=== PATIENT | female | born 1980 | race Caucasian/White ===

== ENCOUNTER 2017-11-25 07:25 | Inpatient (IN) | payer BC ==
[2017-11-25] MEDS ORDERED: morphine 2 MG INJ IV (09:00)
[2017-11-25] MEDS ORDERED: NACL 0.9% 3 ML SYG IV (09:00)
[2017-11-25] MEDS: morphine 2 MG INJ IV (09:00)
[2017-11-25] MEDS: SOD CHLORIDE 0.9% 1,000 ML IV ×3 (09:44→23:46)
[2017-11-25 09:52] LABS: ADD MAN DIFF? NO
[2017-11-25 09:56] LABS: WHITE BLOOD COUNT 7.1 10^3/ul (4.8-10.8)
[2017-11-25 09:56] LABS: BASOPHILS % 0.3 % (0.0-2.0); EOSINOPHILS % 0.4 % (0.0-7.0); HEMATOCRIT 36.6 % (37.0-47.0); HEMOGLOBIN 13.4 g/dl (12.0-16.0); LYMPHOCYTES # 1.2 10^3/ul (0.8-2.9); LYMPHOCYTES % 16.8 % (15.0-51.0); MEAN CORPUSCULAR HEMOGLOBIN 30.2 pg (29.0-33.0); MEAN CORPUSCULAR HGB CONC 36.6 g/dl (32.0-37.0); MEAN CORPUSCULAR VOLUME 82.6 fl (82.0-101.0); MEAN PLATELET VOLUME 11.7 fl (7.4-10.4); MONOCYTE # 0.5 10^3/ul (0.3-0.9); MONOCYTES % 6.9 % (0.0-11.0); NEUTROPHIL # 5.3 10^3/ul (1.6-7.5); NEUTROPHILS % 75.2 % (39.0-77.0); PLATELET COUNT 183 10^3/UL (140-415); RED BLOOD COUNT 4.43 10^6/ul (4.20-5.40); RED CELL DISTRIBUTION WIDTH 12.7 % (11.5-14.5)
[2017-11-25] MEDS ORDERED: DEXTROSE 50% 50 ML SYRINGE IV ×2 (10:00)
[2017-11-25] MEDS ORDERED: GLUCOSE GEL 15 GRAM TUBE PO ×2 (10:00)
[2017-11-25] MEDS ORDERED: GLUCAGON 1 MG INJ IM (10:00)
[2017-11-25] MEDS ORDERED: GLUCOSE GEL 15 GRAM TUBE BUCCAL (10:00)
[2017-11-25] MEDS: FAMOTIDINE 20 MG INJ IV ×2 (10:04→20:52)
[2017-11-25] MEDS: HYDROmorphONE 1 MG/ML SYG IV ×4 (10:04→22:39)
[2017-11-25] MEDS: LISINOPRIL 20 MG TAB PO (10:04)
[2017-11-25 10:16] LABS: ALANINE AMINOTRANSFERASE 44 IU/L (13-69); ALBUMIN/GLOBULIN RATIO 1.08; ALKALINE PHOSPHATASE 56 IU/L (42-121); AMYLASE 101 U/L (11-123); ANION GAP 18 (8-16); ASPARTATE AMINO TRANSFERASE 32 IU/L (15-46); BILIRUBIN,INDIRECT 0.5 mg/dl (0-1.1); BILIRUBIN,TOTAL 0.5 mg/dl (0.2-1.3); BLOOD UREA NITROGEN 11 mg/dl (7-20); CALCIUM 8.6 mg/dl (8.4-10.2); CARBON DIOXIDE 20 mmol/L (21-31); CHLORIDE 100 mmol/L (97-110); GLUCOSE 245 mg/dl (70-220); HDL CHOLESTEROL 28 mg/dl (34-82); LIPASE 793 U/L (23-300); POTASSIUM 4.4 mmol/L (3.5-5.1); SODIUM 134 mmol/L (135-144); TOTAL PROTEIN 7.7 g/dl (6.1-8.1)
[2017-11-25 10:28] LABS: CHOL/HDL RATIO 16.9 RATIO; CHOLESTEROL 475 mg/dl (100-200)
[2017-11-25 10:45] LABS: HEMOGLOBIN A1C 9.3 % (0-5.9)
[2017-11-25 11:17] LABS: TRIGLYCERIDES > 1575 mg/dl (0-149)
[2017-11-25] MEDS: PIPER-TAZO 3.375 GM IV (PMX) 100 ML IVPB ×3 (11:41→23:48)
[2017-11-25] MEDS: INSULIN ASPART [NOVOLOG] 3 ML PEN SC ×4 (11:43→20:57)
[2017-11-25] MEDS: FISH OIL 1,000 MG CAP PO ×2 (13:28→20:53)
[2017-11-25] MEDS: MIDAZOLAM 1 MG/ML 2 ML INJ (16:26)
[2017-11-25] MEDS: LIDOCAINE 2% (SDV) 5 ML INJ (16:26)
[2017-11-25] MEDS: PROPOFOL 20 ML (16:26)
[2017-11-25] MEDS: FENTAnyl 50 MCG/ML VIAL (16:26)
[2017-11-25] MEDS: ONDANSETRON 4 MG INJ IV (18:23)
[2017-11-25] MEDS: metFORMIN 500 MG TAB PO (18:30)
[2017-11-25] MEDS: DIPHENHYDRAMINE 25 MG CAP PO (20:06)
[2017-11-25] MEDS: GEMFIBROZIL 600 MG TAB PO (20:52)
[2017-11-25] MEDS: ATORVASTATIN 40 MG TAB PO (20:53)
[2017-11-25] MEDS: INSULIN GLARGINE [LANtus] 3 ML PEN SC (20:59)
[2017-11-25] MEDS ORDERED: ATORVASTATIN 40 MG TAB PO (21:00)
[2017-11-25] MEDS: NIACIN (ER) 500 MG TAB PO (22:20)
[2017-11-26] MEDS: ACCU-CHEK XX (02:13)
[2017-11-26] MEDS: HYDROmorphONE 1 MG/ML SYG IV ×4 (05:02→18:43)
[2017-11-26 05:41] LABS: ADD MAN DIFF? NO
[2017-11-26 05:51] LABS: BASOPHILS % 0.2 % (0.0-2.0); EOSINOPHILS # 0.1 10^3/ul (0.0-0.5); EOSINOPHILS % 2.6 % (0.0-7.0); HEMATOCRIT 32.4 % (37.0-47.0); HEMOGLOBIN 11.3 g/dl (12.0-16.0); LYMPHOCYTES # 1.5 10^3/ul (0.8-2.9); LYMPHOCYTES % 30.5 % (15.0-51.0); MEAN CORPUSCULAR HEMOGLOBIN 29.9 pg (29.0-33.0); MEAN CORPUSCULAR HGB CONC 34.9 g/dl (32.0-37.0); MEAN CORPUSCULAR VOLUME 85.7 fl (82.0-101.0); MEAN PLATELET VOLUME 11.5 fl (7.4-10.4); MONOCYTE # 0.3 10^3/ul (0.3-0.9); MONOCYTES % 6.4 % (0.0-11.0); NEUTROPHILS % 59.9 % (39.0-77.0); PLATELET COUNT 149 10^3/UL (140-415); RED BLOOD COUNT 3.78 10^6/ul (4.20-5.40); RED CELL DISTRIBUTION WIDTH 12.9 % (11.5-14.5)
[2017-11-26] MEDS: PIPER-TAZO 3.375 GM IV (PMX) 100 ML IVPB ×4 (06:06→23:45)
[2017-11-26 06:11] LABS: INR 0.93; PROTIME 12.5 Sec (11.9-14.9)
[2017-11-26 06:12] LABS: PARTIAL THROMBOPLASTIN TIME 26.2 Sec (25.0-35.0)
[2017-11-26 06:20] LABS: CHOL/HDL RATIO 11.3 RATIO; HDL CHOLESTEROL 26 mg/dl (34-82)
[2017-11-26 06:20] LABS: CHOLESTEROL 294 mg/dl (100-200)
[2017-11-26 06:27] LABS: ANION GAP 11 (8-16); BLOOD UREA NITROGEN 13 mg/dl (7-20); CARBON DIOXIDE 22 mmol/L (21-31); CHLORIDE 108 mmol/L (97-110); CREATININE 0.52 mg/dl (0.44-1.00); GLUCOSE 176 mg/dl (70-220); POTASSIUM 3.8 mmol/L (3.5-5.1); SODIUM 137 mmol/L (135-144)
[2017-11-26 07:18] LABS: LIPASE 314 U/L (23-300)
[2017-11-26 07:18] LABS: AMYLASE 67 U/L (11-123)
[2017-11-26] MEDS: metFORMIN 500 MG TAB PO ×2 (07:50→17:28)
[2017-11-26] MEDS: INSULIN GLARGINE [LANtus] 3 ML PEN SC ×2 (08:35→22:05)
[2017-11-26] MEDS: INSULIN ASPART [NOVOLOG] 3 ML PEN SC ×4 (08:35→21:00)
[2017-11-26] MEDS: SOD CHLORIDE 0.9% 1,000 ML IV ×4 (08:36→22:02)
[2017-11-26] MEDS: FAMOTIDINE 20 MG INJ IV (08:37)
[2017-11-26] MEDS: FISH OIL 1,000 MG CAP PO ×2 (08:39→22:00)
[2017-11-26] MEDS: LISINOPRIL 20 MG TAB PO (08:40)
[2017-11-26] MEDS: GEMFIBROZIL 600 MG TAB PO ×2 (08:40→22:00)
[2017-11-26] MEDS: ONDANSETRON 4 MG INJ IV ×3 (08:41→20:43)
[2017-11-26] MEDS: PANTOPRAZOLE (EC) 40 MG TAB PO (17:29)
[2017-11-26 18:10] LABS: ADD UMIC YES; UR ASCORBIC ACID NEGATIVE (NEGATIVE); UR BACTERIA FEW /HPF (NONE SEEN); UR BILIRUBIN (Dip) NEGATIVE (NEGATIVE); UR BLOOD (Dip) NEGATIVE (NEGATIVE); UR CLARITY SLIGHTLY CLOUDY (CLEAR); UR COLOR YELLOW (YELLOW); UR GLUCOSE (Dip) 3+ mg/dL (NEGATIVE); UR KETONES (Dip) 2+ mg/dL (NEGATIVE); UR LEUKOCYTE ESTERASE (Dip) 1+ Leu/ul (NEGATIVE); UR NITRITE (Dip) NEGATIVE (NEGATIVE); UR RBC 1 /HPF (0-5); UR SPECIFIC GRAVITY (Dip) 1.018 (1.003-1.030); UR SQUAMOUS EPITHELIAL CELL FEW /HPF (FEW); UR TOTAL PROTEIN (Dip) NEGATIVE (NEGATIVE); UR UROBILINOGEN (Dip) 2+ mg/dL (NEGATIVE); UR WBC 2 /HPF (0-5)
[2017-11-26] MEDS: NIACIN (ER) 500 MG TAB PO (22:00)
[2017-11-26] MEDS: CARISOPRODOL 350 MG TAB PO (22:01)
[2017-11-26] MEDS: ATORVASTATIN 40 MG TAB PO (22:01)
[2017-11-26] MEDS: MICONAZOLE 200 MG VAG SUPP VAG (22:07)
[2017-11-27] MEDS: HYDROmorphONE 1 MG/ML SYG IV ×5 (01:53→22:59)
[2017-11-27] MEDS: ACCU-CHEK XX (01:55)
[2017-11-27 05:09] LABS: ADD MAN DIFF? NO
[2017-11-27] MEDS: PANTOPRAZOLE (EC) 40 MG TAB PO ×2 (05:12→17:34)
[2017-11-27] MEDS: PIPER-TAZO 3.375 GM IV (PMX) 100 ML IVPB ×3 (05:12→17:35)
[2017-11-27 05:14] LABS: BASOPHILS % 0.6 % (0.0-2.0); EOSINOPHILS # 0.2 10^3/ul (0.0-0.5); EOSINOPHILS % 5.7 % (0.0-7.0); HEMATOCRIT 32.7 % (37.0-47.0); HEMOGLOBIN 10.8 g/dl (12.0-16.0); LYMPHOCYTES # 1.5 10^3/ul (0.8-2.9); LYMPHOCYTES % 43.3 % (15.0-51.0); MEAN CORPUSCULAR VOLUME 87.9 fl (82.0-101.0); MEAN PLATELET VOLUME 11.1 fl (7.4-10.4); MONOCYTE # 0.3 10^3/ul (0.3-0.9); NEUTROPHIL # 1.5 10^3/ul (1.6-7.5); NEUTROPHILS % 42.1 % (39.0-77.0); PLATELET COUNT 148 10^3/UL (140-415); RED BLOOD COUNT 3.72 10^6/ul (4.20-5.40); RED CELL DISTRIBUTION WIDTH 12.9 % (11.5-14.5)
[2017-11-27 05:14] LABS: WHITE BLOOD COUNT 3.5 10^3/ul (4.8-10.8)
[2017-11-27 05:45] LABS: LIPASE 117 U/L (23-300)
[2017-11-27 05:46] LABS: ANION GAP 10 (8-16); BLOOD UREA NITROGEN 10 mg/dl (7-20); CARBON DIOXIDE 23 mmol/L (21-31); CHLORIDE 110 mmol/L (97-110); CREATININE 0.52 mg/dl (0.44-1.00); GLUCOSE 108 mg/dl (70-220); POTASSIUM 3.9 mmol/L (3.5-5.1); SODIUM 139 mmol/L (135-144)
[2017-11-27 06:14] LABS: TRIGLYCERIDES 1078 mg/dl (0-149)
[2017-11-27] MEDS: metFORMIN 500 MG TAB PO ×2 (07:50→17:35)
[2017-11-27] MEDS: INSULIN ASPART [NOVOLOG] 3 ML PEN SC ×4 (07:50→20:45)
[2017-11-27] MEDS: SOD CHLORIDE 0.9% 1,000 ML IV ×3 (08:49→20:33)
[2017-11-27] MEDS: FISH OIL 1,000 MG CAP PO ×2 (09:00→20:31)
[2017-11-27] MEDS: LISINOPRIL 20 MG TAB PO (09:00)
[2017-11-27] MEDS: GEMFIBROZIL 600 MG TAB PO ×2 (09:00→20:31)
[2017-11-27] MEDS: INSULIN GLARGINE [LANtus] 3 ML PEN SC ×2 (10:17→20:40)
[2017-11-27] MEDS: ONDANSETRON 4 MG INJ IV ×2 (11:36→19:41)
[2017-11-27] MEDS: ATORVASTATIN 40 MG TAB PO (20:29)
[2017-11-27] MEDS: NIACIN (ER) 500 MG TAB PO (20:29)
[2017-11-27] MEDS: DIPHENHYDRAMINE 25 MG CAP PO (20:30)
[2017-11-27] MEDS: MICONAZOLE 200 MG VAG SUPP VAG (20:32)
[2017-11-27] MEDS: hydrALAzine 20 MG INJ IV (20:43)
[2017-11-28] MEDS: PIPER-TAZO 3.375 GM IV (PMX) 100 ML IVPB ×5 (00:15→23:52)
[2017-11-28] MEDS: ONDANSETRON 4 MG INJ IV ×3 (01:12→16:28)
[2017-11-28] MEDS: HYDROCODONE/APAP (5/325) TAB PO (01:34)
[2017-11-28] MEDS: ACCU-CHEK XX (02:00)
[2017-11-28] MEDS: hydrALAzine 20 MG INJ IV (02:40)
[2017-11-28] MEDS: HYDROmorphONE 1 MG/ML SYG IV ×5 (04:15→23:53)
[2017-11-28 05:10] LABS: ADD MAN DIFF? NO
[2017-11-28 05:31] LABS: BASOPHILS % 0.7 % (0.0-2.0); EOSINOPHILS # 0.2 10^3/ul (0.0-0.5); EOSINOPHILS % 5.2 % (0.0-7.0); HEMATOCRIT 34.8 % (37.0-47.0); HEMOGLOBIN 11.9 g/dl (12.0-16.0); LYMPHOCYTES # 1.6 10^3/ul (0.8-2.9); LYMPHOCYTES % 40.6 % (15.0-51.0); MEAN CORPUSCULAR HEMOGLOBIN 29.2 pg (29.0-33.0); MEAN CORPUSCULAR HGB CONC 34.2 g/dl (32.0-37.0); MEAN CORPUSCULAR VOLUME 85.5 fl (82.0-101.0); MONOCYTE # 0.3 10^3/ul (0.3-0.9); NEUTROPHIL # 1.8 10^3/ul (1.6-7.5); PLATELET COUNT 164 10^3/UL (140-415); RED BLOOD COUNT 4.07 10^6/ul (4.20-5.40); RED CELL DISTRIBUTION WIDTH 12.5 % (11.5-14.5)
[2017-11-28 05:58] LABS: ALANINE AMINOTRANSFERASE 64 IU/L (13-69); ALBUMIN 3.9 g/dl (3.3-4.9); ALBUMIN/GLOBULIN RATIO 1.39; ALKALINE PHOSPHATASE 43 IU/L (42-121); ANION GAP 19 (8-16); ASPARTATE AMINO TRANSFERASE 56 IU/L (15-46); BILIRUBIN,INDIRECT 0.4 mg/dl (0-1.1); BILIRUBIN,TOTAL 0.4 mg/dl (0.2-1.3); BLOOD UREA NITROGEN 8 mg/dl (7-20); CALCIUM 8.7 mg/dl (8.4-10.2); CARBON DIOXIDE 21 mmol/L (21-31); CHLORIDE 102 mmol/L (97-110); CREATININE 0.44 mg/dl (0.44-1.00); GLUCOSE 132 mg/dl (70-220); POTASSIUM 3.3 mmol/L (3.5-5.1); SODIUM 139 mmol/L (135-144); TOTAL PROTEIN 6.7 g/dl (6.1-8.1)
[2017-11-28] MEDS: PANTOPRAZOLE (EC) 40 MG TAB PO ×2 (06:03→17:54)
[2017-11-28 06:15] LABS: TRIGLYCERIDES 905 mg/dl (0-149)
[2017-11-28] MEDS: SOD CHLORIDE 0.9% 1,000 ML IV ×2 (06:42→15:35)
[2017-11-28] MEDS: LISINOPRIL 20 MG TAB PO (08:55)
[2017-11-28] MEDS: FISH OIL 1,000 MG CAP PO ×2 (08:56→21:59)
[2017-11-28] MEDS: metFORMIN 500 MG TAB PO ×2 (08:56→17:53)
[2017-11-28] MEDS: GEMFIBROZIL 600 MG TAB PO ×2 (08:56→21:59)
[2017-11-28] MEDS: INSULIN ASPART [NOVOLOG] 3 ML PEN SC ×4 (09:05→20:47)
[2017-11-28] MEDS: INSULIN GLARGINE [LANtus] 3 ML PEN SC ×2 (09:05→20:50)
[2017-11-28] MEDS: ACETAMINOPHEN 325 MG TAB PO (12:45)
[2017-11-28] MEDS: BARIUM SULF 2% 450 ML BTL (BERRY SMOOTHIE) PO (14:24)
[2017-11-28] MEDS: SOD CHLORIDE 0.9% 100 ML (17:40)
[2017-11-28] MEDS: IOHEXOL 300MG/ML 150 ML BTL (17:40)
[2017-11-28] MEDS: POTASSIUM CHLORIDE 100 ML IVPB (20:43)
[2017-11-28] MEDS: ATORVASTATIN 40 MG TAB PO (21:58)
[2017-11-28] MEDS: NIACIN (ER) 500 MG TAB PO (21:58)
[2017-11-28] MEDS: POTASSIUM CHLORIDE (SR) 20 MEQ TAB PO (21:59)
[2017-11-28] MEDS: MICONAZOLE 200 MG VAG SUPP VAG (22:00)
[2017-11-29] MEDS: SOD CHLORIDE 0.9% 1,000 ML IV ×4 (00:51→21:28)
[2017-11-29] MEDS: DIPHENHYDRAMINE 25 MG CAP PO (01:14)
[2017-11-29] MEDS: ACCU-CHEK XX (02:00)
[2017-11-29] MEDS: HYDROmorphONE 1 MG/ML SYG IV ×2 (04:58→21:28)
[2017-11-29 05:24] LABS: ADD MAN DIFF? NO
[2017-11-29 05:35] LABS: WHITE BLOOD COUNT 3.4 10^3/ul (4.8-10.8)
[2017-11-29 05:35] LABS: BASOPHILS % 0.6 % (0.0-2.0); EOSINOPHILS # 0.2 10^3/ul (0.0-0.5); EOSINOPHILS % 4.7 % (0.0-7.0); HEMATOCRIT 33.6 % (37.0-47.0); HEMOGLOBIN 11.2 g/dl (12.0-16.0); LYMPHOCYTES # 1.6 10^3/ul (0.8-2.9); LYMPHOCYTES % 46.4 % (15.0-51.0); MEAN CORPUSCULAR HEMOGLOBIN 28.6 pg (29.0-33.0); MEAN CORPUSCULAR HGB CONC 33.3 g/dl (32.0-37.0); MEAN CORPUSCULAR VOLUME 85.7 fl (82.0-101.0); MEAN PLATELET VOLUME 11.1 fl (7.4-10.4); MONOCYTE # 0.3 10^3/ul (0.3-0.9); MONOCYTES % 8.7 % (0.0-11.0); NEUTROPHIL # 1.3 10^3/ul (1.6-7.5); PLATELET COUNT 163 10^3/UL (140-415); RED BLOOD COUNT 3.92 10^6/ul (4.20-5.40); RED CELL DISTRIBUTION WIDTH 12.6 % (11.5-14.5)
[2017-11-29] MEDS: PANTOPRAZOLE (EC) 40 MG TAB PO (05:46)
[2017-11-29] MEDS: PIPER-TAZO 3.375 GM IV (PMX) 100 ML IVPB ×4 (05:46→23:57)
[2017-11-29 06:03] LABS: ALANINE AMINOTRANSFERASE 68 IU/L (13-69); ALBUMIN 3.5 g/dl (3.3-4.9); ALBUMIN/GLOBULIN RATIO 1.25; ALKALINE PHOSPHATASE 39 IU/L (42-121); ANION GAP 15 (8-16); ASPARTATE AMINO TRANSFERASE 54 IU/L (15-46); BILIRUBIN,INDIRECT 0.5 mg/dl (0-1.1); BILIRUBIN,TOTAL 0.5 mg/dl (0.2-1.3); BLOOD UREA NITROGEN 8 mg/dl (7-20); CALCIUM 8.6 mg/dl (8.4-10.2); CARBON DIOXIDE 22 mmol/L (21-31); CHLORIDE 104 mmol/L (97-110); GLUCOSE 194 mg/dl (70-220); MAGNESIUM 1.8 mg/dl (1.7-2.5); PHOSPHORUS 2.9 mg/dl (2.5-4.9); POTASSIUM 3.8 mmol/L (3.5-5.1); SODIUM 137 mmol/L (135-144); TOTAL PROTEIN 6.3 g/dl (6.1-8.1)
[2017-11-29 06:08] LABS: LIPASE 169 U/L (23-300)
[2017-11-29] MEDS: INSULIN ASPART [NOVOLOG] 3 ML PEN SC ×4 (08:49→22:07)
[2017-11-29] MEDS: FISH OIL 1,000 MG CAP PO ×2 (09:32→20:21)
[2017-11-29] MEDS: GEMFIBROZIL 600 MG TAB PO ×2 (09:32→20:26)
[2017-11-29] MEDS: LISINOPRIL 20 MG TAB PO (09:33)
[2017-11-29] MEDS: HYDROCODONE/APAP (5/325) TAB PO (09:33)
[2017-11-29] MEDS: INSULIN GLARGINE [LANtus] 3 ML PEN SC ×2 (09:44→22:09)
[2017-11-29 12:59] LABS: TRIGLYCERIDES 649 mg/dl (0-149)
[2017-11-29] MEDS: ATORVASTATIN 40 MG TAB PO (20:21)
[2017-11-29] MEDS: NIACIN (ER) 500 MG TAB PO (20:21)
[2017-11-29] MEDS: hydrALAzine 20 MG INJ IV (21:22)
[2017-11-29] MEDS: ONDANSETRON 4 MG INJ IV (22:01)
[2017-11-30] MEDS: HYDROmorphONE 1 MG/ML SYG IV ×2 (01:52→06:10)
[2017-11-30] MEDS: ACCU-CHEK XX (02:00)
[2017-11-30] MEDS: PIPER-TAZO 3.375 GM IV (PMX) 100 ML IVPB ×2 (06:02→12:50)
[2017-11-30] MEDS: INSULIN ASPART [NOVOLOG] 3 ML PEN SC ×2 (07:50→12:51)
[2017-11-30] MEDS: FISH OIL 1,000 MG CAP PO (08:36)
[2017-11-30] MEDS: ACETAMINOPHEN 325 MG TAB PO (08:37)
[2017-11-30] MEDS: PANTOPRAZOLE (EC) 40 MG TAB PO (08:38)
[2017-11-30] MEDS: LISINOPRIL 20 MG TAB PO (08:38)
[2017-11-30] MEDS: INSULIN GLARGINE [LANtus] 3 ML PEN SC (08:40)
[2017-11-30] MEDS: SOD CHLORIDE 0.9% 1,000 ML IV (08:41)
[2017-11-30] MEDS: GEMFIBROZIL 600 MG TAB PO (08:43)
[2017-12-02] MEDS ORDERED: metFORMIN 500 MG TAB PO (18:30)
== END 2017-11-30 15:30 | disposition home or self-care (01) | DRG 439 ==
LOC: MS1 11-27 17:50
PROVIDERS: Internal Medicine
PROC: 0DB68ZX Excision of Stomach, Via Natural or Artificial Opening Endoscopic, Diagnostic (ICD-10-PCS; principal; 2017-11-25 16:00)
DX: K85.90 Acute pancreatitis without necrosis or infection, unspecified (principal); E87.1 Hypo-osmolality and hyponatremia; K86.3 Pseudocyst of pancreas; E11.65 Type 2 diabetes mellitus with hyperglycemia; E78.1 Pure hyperglyceridemia; I10 Essential (primary) hypertension; K76.0 Fatty (change of) liver, not elsewhere classified; K29.70 Gastritis, unspecified, without bleeding; K86.1 Other chronic pancreatitis; Z79.4 Long term (current) use of insulin
CPT/HCPCS: 74177; 74182; 76700; 80048; 80053; 80061; 81001; 82150; 82962; 83036; 83690; 83735; 84100; 84443; 84478; 84703; 85025; 85610; 85730; 87040; 87086; 88305